=== PATIENT | female | born 2000 | race Caucasian/White ===

== ENCOUNTER 2022-11-09 07:36 | Outpatient (CLI) | payer OTHER ==
[~2022-11-09] VITALS: Ht 167.7 cm; Wt 51.0 kg
[2022-11-09] MEDS ORDERED: REGLAN 10MG10 MG/TAB PO (08:07)
[2022-11-09] MEDS ORDERED: ANGELIQ PO (08:08)
[2022-11-09 08:23] VITALS: BP 119/67; PULSE 56; TEMP 98.3
[2022-11-09 10:15] VITALS: BP 120/77; PULSE 66
[2022-11-09 10:30] VITALS: BP 119/58; PULSE 59
[2022-11-09] MEDS ORDERED: PROAMATINE 5MG T5 MG PO (10:40)
--- NOTE | 2022-11-09 11:02 | NUR ---
DC instructions reviewed with pt and mother, both express understanding. She has eaten applesauce and water without issue. She is steady on feet. IV DC'd, site wrapped with coban. She is escorted out to elevator with steady gait.
== END 2022-11-09 11:02 | disposition home or self-care (01) ==
LOC: COL.CAR 07:36
DX: R00.2 Palpitations (principal); R42 Dizziness and giddiness